=== PATIENT | male | born 1985 | race Native Hawaiian/Other Pacific Islander ===

== ENCOUNTER 2017-11-03 11:48 | Emergency (ER) | payer OTHER ==
[~2017-11-03] VITALS: Ht 177.8 cm; Wt 74.8 kg
[2017-11-03 14:22] VITALS: BP 118/68; TEMP 98.5
== END 2017-11-03 14:22 | disposition home or self-care (01) ==
LOC: ED 11:48
PROC: 0HQFXZZ Repair Right Hand Skin, External Approach (ICD-10-PCS; principal; 2017-11-03)
PROC: 2W3JX1Z Immobilization of Right Finger using Splint (ICD-10-PCS; 2017-11-03)
PROC: 0HDFXZZ Extraction of Right Hand Skin, External Approach (ICD-10-PCS; 2017-11-03)
DX: S61.214A Laceration without foreign body of right ring finger without damage to nail, initial encounter (principal); W19.XXXA Unspecified fall, initial encounter
CPT/HCPCS: 90471; 90715; 99283

== ENCOUNTER 2017-11-13 13:59 | Emergency (ER) | payer OTHER ==
[~2017-11-13] VITALS: Ht 177.8 cm; Wt 74.8 kg
[2017-11-13 15:20] VITALS: BP 125/89; TEMP 98
== END 2017-11-13 15:20 | disposition home or self-care (01) ==
LOC: ED 13:59
DX: Z48.02 Encounter for removal of sutures (principal); L03.011 Cellulitis of right finger